=== PATIENT | male | born 2000 | race Caucasian/White ===

== ENCOUNTER 2020-09-02 11:21 | Emergency (ER) | payer SELFPAY ==
[2020-09-02 11:41] VITALS: BP 127/73; PULSE 86; RESP 20; TEMP 37.1; O2SAT 99
--- NOTE | 2020-09-02 11:58 | HMH.EDUTC ---
[facility] [place] Disposition Clinical Impression: Dental abscess Disposition: Home, Self-Care Condition on Discharge: Good Instructions: Tooth Abscess, Amoxicillin and Clavulanic Acid Additional Instructions: Take medication as prescribed Follow up with Dentist as soon as possible call and make appointment Return if needed Straight to ER if any life threatening symptoms Continue to gargle warm salt water this may help with pain and irritation Prescriptions: Amoxicillin/Potassium Clav [Augmentin 875-125 Tablet] 1 tab PO Q12H 7 Days #14 tab Transmission Status: Received by [facility] Referrals: Iliana Scott [Primary Care Provider] - As needed Forms: Work/School Release Time of Disposition: 12:06 Medical Decision Making - Bakari Inquiry Pt receiving controlled substance: No Bakari was queried for this patient: No Vital Signs: 09/02/20 11:41 09/02/20 12:11 Temperature 98.8 F 98.8 F Temperature Source Oral Oral Pulse Rate 86 Pulse Rate [Right Brachial] 86 Respiratory Rate 20 20 Blood Pressure 127/73 Blood Pressure [Right Arm] 127/73 Blood Pressure Mean [Right Arm] 91 Blood Pressure Source Automatic Cuff Blood Pressure Source [Right Arm] Automatic Cuff Blood Pressure Position Sitting Blood Pressure Position [Right Arm] Sitting 02 Sat by Pulse Oximetry 99 Oxygen Delivery Method Room Air Room Air [facility] [place] HPI - General Stated complaint: face swelling, dental pain Time Seen by Provider: 09/02/20 11:58 Mode of Arrival: Ambulatory Source of Information: Patient Limitations: No Limitations Description of Symptoms (Recalled from Triage Doc. by RN): PT COMPLAINS OF LEFT SIDE FACIAL SWELLING HEENT Symptoms (Recalled from RN notes): No Resp Symptoms (Recalled from RN notes): No Skin Symptoms (Recalled from RN notes): No MS Symptoms (Recalled from RN notes): No Functional Status (Recalled from RN notes): WNL - History of Present Illness Provider Complaint: Patient states that he has been having pain and swelling in his left upper teeth State that he noticed he was starting to have some swelling States that he has been doing salt water gargles and taking over the counter medications but it has continued to get worse States that he feels like the swelling is getting worse - Related Data Previous Rx's Medication Instructions Recorded Amoxicillin/Potassium Clav 1 tab PO Q12H 7 Days #14 tab 09/02/20 [Augmentin 875-125 Tablet] Allergies Allergy/AdvReac Type Severity Reaction Status Date / Time No Known Allergies Allergy Verified 09/02/20 11:59 - Worker's Comp Is this a Worker's Comp case?: No H History - Hepatitis A Screen Drug use history?: No High risk sexual behaviors?: No History of sexually transmitted infection?: No Currently employed?: No Childcare worker?: No Do you have indoor plumbing?: Yes Do you have electricity?: Yes Attestation statement:: This patient has been screened for Hepatitis A risk factors. I have reviewed the patient's past medical history: Yes ROS Obtained: Yes All systems reviewed & no additional complaints, Yes Systems reviewed as appropriate & no additional complaints - Constitutional Constitutional: Reports system reviewed and no additional complaints, except as docu, Denies fever(s) - ENT Ears, Nose, Mouth, and Throat: Reports system reviewed and no additional complaints, except as docu, Reports dental pain, Reports sore throat Physical Exam - General General appearance: alert, in no apparent distress - Expanded ENT Exam Teeth exam: Present: other (multiple dental caries noted with swelling in the left upper gum area) Throat exam: Present: other (Mild pharyngeal erythema noted) - Respiratory Respiratory exam: Present: normal lung sounds bilaterally. Absent: respiratory distress - Cardiovascular Cardiovascular exam: Present: regular rate, normal rhythm. Absent: JVD - Abdominal Exam Abdominal exam: Present: soft, normal bowel sounds.
[2020-09-02 12:11] VITALS: BP 127/73; PULSE 86; RESP 20; TEMP 37.1; O2SAT 99
== END 2020-09-02 12:12 | disposition home or self-care (01) ==
PROVIDERS: Emergency Provider Nurse Practitioner; PCP Family Medicine
DX: K04.7 Periapical abscess without sinus (principal); K02.9 Dental caries, unspecified
CPT/HCPCS: 99202; G0463

== ENCOUNTER 2020-09-19 13:54 | Emergency (ER) | payer SELFPAY ==
[2020-09-19 13:56] VITALS: BP 115/72; PULSE 64; RESP 18; TEMP 37; O2SAT 100; BMI 22.2
--- NOTE | 2020-09-19 14:19 | CT_ITS ---
PROCEDURE: CT ABDOMEN PELVIS W CON CLINICAL INDICATION: abdominal pain COMPARISON: No exams were available for comparison TECHNIQUE: IV Contrast: 75ML Isovue 370 Oral Contrast None Axial images obtained with sagittal and coronal reformats. All CT scans at the facility use one or more dose reduction, viz: automated exposure control, ma/kV adjustment per patient size (including targeted exams where dose is matched to indication, i.e. head), or iterative reconstruction technique. FINDINGS: LOWER THORAX: There are few subpleural nodules measuring up to 6 millimeters. HEPATOBILIARY: Liver: No focal hepatic lesions. Gallbladder: The gallbladder is unremarkable Biliary: No intrahepatic or extrahepatic ductal dilation. PANCREAS: No focal masses or ductal dilatation. SPLEEN:No splenomegaly. ADRENALS:No adrenal nodules. KIDNEYS/URETERS/BLADDER: No hydronephrosis, stones, or solid mass lesions are seen in the visualized portions of the kidneys. PERITONEUM / RETROPERITONEUM: No free air or fluid. Peritoneum LYMPH NODES: No free air or fluid. GI TRACT: No distention, wall thickening, or inflammatory stranding. The appendix is normal. VASCULAR: The aorta is normal in caliber. ABDOMINAL WALL: Intact SOFT TISSUES: Unremarkable. BONES: Unremarkable IMPRESSION: No acute intra-abdominal abnormality. Bilateral subpleural nodules measuring up to 6 millimeters. Follow-up non-contrast CT thorax in 6 months is recommended. Dictated by: Xuan Diaz 09/19/2020 15:08 Xuan Diaz in [place] 09/19/2020 15:08
--- NOTE | 2020-09-19 14:20 | HMH.EDGENADL ---
ED Disposition Clinical Impression: Abdominal pain, periumbilical Disposition: Home, Self-Care Condition on Discharge: Good Instructions: DI for Abdominal Pain-Adult Additional Instructions: Bentyl as needed for cramps. Zofran as needed for nausea. Additional instructions for ABDOMINAL PAIN: See your physician as soon as possible for further evaluation. Return immediately if worsening abdominal pain, vomiting, shortness of breath, fever, vomiting of blood or abdominal distention. Prescriptions: Dicyclomine HCl [Bentyl 10mg capsule] 10 mg PO TIDP PRN #9 cap PRN Reason: Cramping Transmission Status: Pending to [facility] Ondansetron [Zofran 4mg ODT] 4 mg PO TIDP PRN #10 tab.rapdis PRN Reason: Nausea And Vomiting Transmission Status: Pending to [facility] Referrals: Iliana Scott [Primary Care Provider] - Forms: Work/School Release - Critical Care Critical Care Time: No Attestation: On 09/19/20, the high probability of a clinically significant, sudden or life threatening deterioration of the following system(s) required my full and direct attention, intervention and personal management. The time I documented below is in addition to time spent performing reported procedures but includes the following listed in this critical care notation. Medical Decision Making - Bakari Inquiry Pt receiving controlled substance: No Bakari was queried for this patient: Yes Vital Signs: 09/19/20 13:56 Temperature 98.6 F Temperature Source Oral Pulse Rate [Left Radial] 64 Respiratory Rate 18 Blood Pressure [Right Arm] 115/72 Blood Pressure Mean [Right Arm] 86 02 Sat by Pulse Oximetry 100 Oxygen Delivery Method Room Air - Lab Data Lab Results 09/19/20 14:30: Urine Color Dk yellow, Urine Appearance Sl cloudy, Urine pH 6.0, Ur Specific Ber[place]old >= 1.030, Urine Protein Trace, Urine Glucose (UA) Negative, Urine Ketones Negative, Urine Blood Negative, Urine Nitrate Negative, Urine Bilirubin Negative, Urine Urobilinogen 0.2, Ur Leukocyte Esterase Negative, Ur Squamous Epith Cells Occasional, Calcium Oxalate Crystal 1+, Urine Bacteria Trace 09/19/20 14:30: WBC 8.2, RBC 5.34, Hgb 16.9, Hct 49.4, MCV 92.4, MCH 31.6 H, MCHC 34.2, RDW 12.9, Plt Count 317, MPV 7.7, Neut % (Auto) 72.7, Lymph % (Auto) 19.5, [place] % (Auto) 6.7, Eos % (Auto) 0.4, Baso % (Auto) 0.7, Neut # (Auto) 5.9, Lymph # (Auto) 1.6, [place] # (Auto) 0.6, Eos # (Auto) 0.0, Baso # (Auto) 0.1 09/19/20 14:30: Sodium 142, Potassium 3.8, Chloride 107, Carbon Dioxide 27, Anion Gap 11.8, BUN 6 L, Creatinine 0.80, Estimated Creat Clear 145, Estimated GFR 122, Est GFR ( Amer) 148, Glucose 89, Calcium 10.2, Total Bilirubin 0.4, AST 25, ALT 16, Alkaline Phosphatase 70, Total Protein 7.6, Albumin 4.9, Globulin 2.7, Albumin/Globulin Ratio 1.8, Lipase 44 Result diagrams: 09/19/20 14:30 09/19/20 14:30 Orders (Tests/Meds): ED MEDICATIONS Discontinued Medications Generic Name Dose Route Start Last Admin Trade Name Freq PRN Reason Stop Dose Admin Iopamidol 75 ml 09/19/20 14:44 09/19/20 14:45 Iopamidol-370 (76%);100ml Bottle IV 09/19/20 14:45 75 ml ONCE ONE Administration Ketorolac Tromethamine 30 mg 09/19/20 14:26 09/19/20 14:34 Ketorolac 30mg/Ml Vial IV 09/19/20 14:27 30 mg ONCE ONE Administration Ondansetron HCl 4 mg 09/19/20 14:26 09/19/20 14:34 Ondansetron 4mg/2ml Vial IV 09/19/20 14:27 4 mg ONCE ONE Administration Sodium Chloride 1,000 ml 09/19/20 14:26 09/19/20 14:34 Sodium Chloride 0.9% 1000ml Bag IV 09/19/20 14:27 1,000 ml BOLUS ONE Administration Sodium Chloride 10 ml 09/19/20 14:44 09/19/20 14:45 Sodium Chloride 0.9% 10ml Syr (Rad Only) IV 09/19/20 14:45 10 ml ONCE ONE Administration - CT Data CT Scan: Abdomen, Pelvis Time Received: 15:[address] Reviewed: Yes: I have viewed the radiologist's interpretation Findings Narrative: PROCEDURE: CT ABDOMEN PELVIS W CON
--- NOTE | 2020-09-19 14:34 | PC.NURSE ---
Pt gone to radiology
[2020-09-19 14:38] LABS: Microscopic, Urine URINE MICROSCOPIC (MICROSCOPIC)
[2020-09-19 14:40] LABS: Appearance,Urine SL CLOUDY (Clear); Blood, Urine Negative (Negative); Color,Urine DK YELLOW (Yellow); Glucose,Urine (UA) Negative (Negative); Ketones,Urine Negative (Negative); Leukocyte Esterase,Urine Negative (Negative); Nitrate,Urine Negative (Negative); Protein,Urine TRACE (Negative); Specific Gravity, Urine >= 1.030 (1.005-1.030); Urobilinogen,Urine 0.2 EU/dl (0.2)
[2020-09-19 14:41] LABS: Basophils # 0.1 K/mm3 (0-0.2); Basophils % 0.7 % (0.1-2.0); Eosinophils % 0.4 % (0.1-12.0); Hematocrit 49.4 % (42.0-52.0); Hemoglobin 16.9 g/dL (14.1-18.0); Lymphocytes # 1.6 K/mm3 (0.7-4.5); Lymphocytes % 19.5 % (10-50); Mean Corpuscular HGB Conc 34.2 g/dL (31.8-35.4); Mean Corpuscular Hemoglobin 31.6 pg (27.0-31.2); Mean Corpuscular Volume 92.4 fl (80-94); Mean Platelet Volume 7.7 fl (7.4-10.4); Monocytes # 0.6 K/mm3 (0.1-1.0); Monocytes % 6.7 % (1.7-9.3); Neutrophils # 5.9 K/mm3 (1.8-7.8); Neutrophils % 72.7 % (37.0-80.0); Platelet Count 317 K/mm3 (142-424); Red Blood Count 5.34 M/mm3 (4.60-6.20); Red Cell Distribution Width 12.9 % (11.5-17.5); White Blood Count 8.2 K/mm3 (4.8-10.8)
[2020-09-19 14:46] LABS: Chloride 107 mmol/L (98-107)
[2020-09-19 14:47] LABS: Potassium 3.8 mmoL/L (3.5-5.1); Sodium 142 mmol/L (136-145)
[2020-09-19 14:48] LABS: Bilirubin,Urine Negative (Negative)
[2020-09-19 14:49] LABS: Alanine Aminotransferase 16 U/L (12-78); Albumin Level 4.9 g/dl (3.5-5.0); Albumin/Globulin Ratio 1.8 (1.1-1.8); Alkaline Phosphatase 70 U/L (38-126); Anion Gap 11.8 mEq/L (5-15); Aspartate Amino Transferase 25 U/L (17-59); Bacteria,Urine Trace /lpf; Bilirubin,Total 0.4 mg/dl (0.2-1.3); Blood Urea Nitrogen 6 mg/dl (9-20); Calcium 10.2 mg/dl (8.4-10.2); Calcium Oxalate Crystals,Urine 1+ /lpf; Carbon Dioxide 27 mmol/L (22.0-30.0); Creatinine Clearance Estimated 145 mL/min (50-200); Estimated Glomerular Filt Rate 122 ml/min (>60); GFR (African American) 148 ML/MIN (>60); Globulin 2.7 g/dL (1.3-3.2); Glucose 89 mg/dl (74-100); Lipase 44 U/L (23-300); Squamous Epithelial Cell,Urine Occasional #/hpf (0-5); Total Protein,Serum 7.6 g/dl (6.3-8.2)
[2020-09-19 15:43] VITALS: BP 138/78; PULSE 76; RESP 18; TEMP 37; O2SAT 100
== END 2020-09-19 15:46 | disposition home or self-care (01) ==
PROVIDERS: Emergency Provider Emergency Medicine; PCP Family Medicine
DX: R10.33 Periumbilical pain (principal)
CPT/HCPCS: 74177; 80053; 81001; 83690; 85025; 96365; 96375; 99283; J2405; Q9967

== ENCOUNTER 2020-11-13 09:44 | Emergency (ER) | payer SELFPAY ==
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
[2020-11-13 10:28] VITALS: BP 130/85; PULSE 74; RESP 21; TEMP 36.8; O2SAT 100; BMI 22.1
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
[2020-11-13 11:25] VITALS: BP 130/85; PULSE 74; RESP 21; TEMP 36.8; O2SAT 100
== END 2020-11-13 11:25 | disposition home or self-care (01) ==
PROVIDERS: Emergency Provider Nurse Practitioner Family; PCP Family Medicine
DX: S20.211A Contusion of right front wall of thorax, initial encounter (principal); M25.561 Pain in right knee; V89.2XXA Person injured in unspecified motor-vehicle accident, traffic, initial encounter; T07.XXXA Unspecified multiple injuries, initial encounter
CPT/HCPCS: 71100; 73562; 99202; G0463